=== PATIENT | female | born 1960 | race Two or more races ===

== ENCOUNTER → 2024-07-26 | Outpatient (BNVA) | payer MEDICARE, MEDICAID, SELFPAY | END | disposition home or self-care (01) | PROVIDERS: PCP Physician Assistant; Referring Provider Physician Assistant; Visit Provider Physician Assistant | DX: N32.81 Overactive bladder (principal) | CPT/HCPCS: Q3014 ==

== ENCOUNTER → 2024-10-03 | Outpatient (BNVA) | payer MEDICARE, MEDICAID, SELFPAY | END | disposition home or self-care (01) | PROVIDERS: PCP Physician Assistant; Referring Provider Physician Assistant; Visit Provider Urology | DX: N30.20 Other chronic cystitis without hematuria (principal); N35.92 Unspecified urethral stricture, female; Z87.440 Personal history of urinary (tract) infections | CPT/HCPCS: 52224; 81003; 96372; A4217; A4649; C1894; J1580; A9270 ==

== ENCOUNTER → 2025-01-30 | Outpatient (BNVA) | payer MEDICARE, MEDICAID, SELFPAY | END | disposition home or self-care (01) | PROVIDERS: PCP Physician Assistant; Referring Provider Physician Assistant; Visit Provider Urology | DX: N32.81 Overactive bladder (principal); N30.20 Other chronic cystitis without hematuria | CPT/HCPCS: 81003; 99212; G0463 ==